=== PATIENT | female | born 1980 | race Caucasian/White ===

== ENCOUNTER 2017-03-14 13:31 | Emergency (ER) | payer OTHER ==
[~2017-03-14] VITALS: Ht 170.2 cm; Wt 70.1 kg
[~2017-03-14 13:31] MED LIST: CLINDAMYCIN HC300 MG PO; FLEXERIL10 MG PO; FLEXERIL5 MG PO; MOTRIN IB200 MG PO; MOTRIN600 MG PO; NAPROSYN500 MG PO; NAPROXEN500 MG PO; PAIN RELIE MM; PREDNISONE10 M1 PO; TRAMADOL HCL50 MG PO; TYLENOL WITH C1 EACH PO; ULTRAM50 MG PO
[2017-03-14] MEDS ORDERED: ADDERALL XR 2020 MG PO (14:05)
[2017-03-14] MEDS ORDERED: QUETIAPINE FUMA50 MG PO (14:05)
[2017-03-14 14:07] LABS: HEMATOCRIT 35.6 % (36.0-46.0); MCH 30.9 PG (29.0-34.0); MCHC 34.3 G/DL (30.0-36.0); MCV 90.1 FL (83-99); MEAN PLAT.VOLUME 10.6 uM^3 (9.5-12.4); PLATELET COUNT 271 K/uL (156-360); RBC DIS.WIDTH-CV 12.8 % (11.8-14.6); RBC DIS.WIDTH-SD 42.1 % (39-53); RED BLOOD COUNT 3.95 M/uL (3.80-5.20); WHITE BLOOD COUNT 9.3 K/uL (4.1-10.2)
[2017-03-14 14:14] LABS: CHLORIDE 106 mEq/L (99-109); POTASSIUM 3.8 mEq/L (3.7-5.4); SODIUM 137 mEq/L (136-147)
[2017-03-14 14:16] LABS: GLUCOSE 134 mg/dL (70-99)
[2017-03-14 14:17] LABS: ANION GAP 10 MEQ/L (2-14)
[2017-03-14 14:20] LABS: GFR ESTIMATE (CALCULATED) > 59 mL/min/
[2017-03-14 14:21] LABS: UREA NITROGEN (BUN) 8 mg/dL (9-23)
[2017-03-14 14:26] LABS: TROP-I INTERPRETATION NEGATIVE; TROPONIN-I < 0.01 ng/mL (0.0-0.30)
[2017-03-14 15:26] LABS: TROP-I INTERPRETATION NEGATIVE; TROPONIN-I < 0.01 ng/mL (0.0-0.30)
[2017-03-14 15:58] VITALS: BP 131/100
== END 2017-03-14 15:59 | disposition left against medical advice (07) ==
LOC: EME 13:31
PROVIDERS: Emergency Medicine
DX: R07.9 Chest pain, unspecified (principal); R94.31 Abnormal electrocardiogram [ECG] [EKG]; Z87.891 Personal history of nicotine dependence; Z88.0 Allergy status to penicillin; Z88.1 Allergy status to other antibiotic agents
CPT/HCPCS: 71020; 80048; 84484; 85027; 85379; 93005; 99281; 99284

== ENCOUNTER 2017-08-14 11:57 | Emergency (ER) | payer OTHER ==
[~2017-08-14] VITALS: Ht 167.6 cm; Wt 67.7 kg
[~2017-08-14 11:57] MED LIST changes: +ADDERALL XR 2020 MG PO; +QUETIAPINE FUMA50 MG PO
[2017-08-14 13:17] LABS: HEMATOCRIT 35.4 % (36.0-46.0); MCH 30.3 PG (29.0-34.0); MCHC 34.5 G/DL (30.0-36.0); MCV 88.1 FL (83-99); MEAN PLAT.VOLUME 9.9 uM^3 (9.5-12.4); PLATELET COUNT 287 K/uL (156-360); RBC DIS.WIDTH-CV 13.1 % (11.8-14.6); RBC DIS.WIDTH-SD 42.2 % (39-53); RED BLOOD COUNT 4.02 M/uL (3.80-5.20); WHITE BLOOD COUNT 9.2 K/uL (4.1-10.2)
[2017-08-14 13:26] LABS: CHLORIDE 106 mEq/L (99-109); POTASSIUM 3.6 mEq/L (3.7-5.4); SODIUM 139 mEq/L (136-147)
[2017-08-14 13:28] LABS: GLUCOSE 104 mg/dL (70-99)
[2017-08-14 13:30] LABS: ANION GAP 11 MEQ/L (2-14)
[2017-08-14 13:31] LABS: TOTAL BILIRUBIN 0.5 mg/dL (0.0-1.0)
[2017-08-14 13:32] LABS: ALKALINE PHOSPHATASE 51 IU/L (3-129); GFR ESTIMATE (CALCULATED) > 59 mL/min/
[2017-08-14 13:33] LABS: UREA NITROGEN (BUN) 8 mg/dL (9-23)
[2017-08-14 13:35] LABS: LIPASE 18 U/L (1.0-51.0)
[2017-08-14 13:44] LABS: ADD MIUA? YES; BILIRUBIN NEGATIVE; BLOOD NEGATIVE; COLOR YELLOW ((YELLOW)); GLUCOSE (STRIP) NEGATIVE; KETONES NEGATIVE; LEUKOCYTES TRACE; NITRITE NEGATIVE; PROTEIN (STRIP) 30; SPECIFIC GRAVITY 1.017 (1.000-1.030); UROBILINOGEN 0.2 MG/DL (0.2-1.0)
[2017-08-14 13:57] LABS: BACTERIA 1+ /HPF; EPITHELIAL CELLS 1+ /HPF; MUCUS 4+ /LPF; RED BLOOD CELLS 0-5 /HPF (0-5); WHITE BLOOD CELLS 0-5 /HPF (0-5)
[2017-08-14 14:09] LABS: QUANTITATIVE HCG < 4.0 MIU/ML
[2017-08-14] MEDS ORDERED: ULTRAM50 MG PO (15:49)
[2017-08-14 16:10] VITALS: BP 126/97
== END 2017-08-14 16:11 | disposition home or self-care (01) ==
LOC: EME 11:57
PROVIDERS: Nurse Practitioner Family
DX: R10.2 Pelvic and perineal pain (principal); R10.31 Right lower quadrant pain; R10.32 Left lower quadrant pain; Z97.5 Presence of (intrauterine) contraceptive device; R11.10 Vomiting, unspecified; Z87.891 Personal history of nicotine dependence
CPT/HCPCS: 74177; 80053; 81003; 83690; 84702; 85027; 99281; 99284; J1885; J2405; J3010; J7040